=== PATIENT | male | born 1985 | race Caucasian/White ===

== ENCOUNTER 2017-08-10 16:53 | Emergency (ER) | payer BC ==
--- NOTE | 2017-08-10 17:23 | UC ---
Respiratory Complaint HPI - HPI Summary HPI Summary: 31 year old female presents with complains of cough and chest congestion. - History of Current Complaint Stated Complaint: COUGH,CHEST PAIN Time Seen by Provider: 08/10/17 17:23 Hx Obtained From: Patient Onset/Duration: Sudden Onset Severity Initially: Moderate Severity Currently: Moderate Character: Cough: Nonproductive Aggravating Factors: Exertion, Deep Breaths - Allergies/Home Medications Allergies/Adverse Reactions: Allergies Allergy/AdvReac Type Severity Reaction Status Date / Time Ibuprofen [From Motrin] AdvReac See Comment Verified 08/10/17 17:35 PMH/Surg Hx/FS Hx/Imm Hx Previously Healthy: Yes - Surgical History Surgical History: Yes Surgery Procedure, Year, and Place: DOUBLE HERNIA REPAIR - Family History Known Family History: Positive: None - Social History Alcohol Use: None Substance Use Type: None Smoking Status (MU): Former Smoker Type: Smokeless Tobacco Amount Used/How Often: 1 CAN PER DAY Length of Time of Smoking/Using Tobacco: 2 YRS CHEWING When Did the Patient Quit Smoking/Using Tobacco: QUIT SMOKING 4 YRS AGO Review of Systems Constitutional: Negative Skin: Negative Eyes: Negative ENT: Negative, Sinus Congestion, Sinus Pain/Tenderness Respiratory: Shortness Of Breath, Cough Cardiovascular: Negative Gastrointestinal: Negative Genitourinary: Negative Motor: Negative Neurovascular: Negative Musculoskeletal: Negative Neurological: Negative Psychological: Negative All Other Systems Reviewed And Are Negative: Yes Physical Exam Triage Information Reviewed: Yes Vital Signs Reviewed: Yes Eye Exam: Normal ENT: Positive: Nasal congestion, Nasal drainage, Sinus tenderness Dental Exam: Normal Neck exam: Normal Neck: Positive: 1 Respiratory: Positive: Wheezing Cardiovascular Exam: Normal Abdominal Exam: Normal Musculoskeletal Exam: Normal Neurological Exam: Normal Psychological Exam: Normal Skin Exam: Normal Respiratory Course/Dx - Differential Dx/Diagnosis Provider Diagnoses: bronchitis. bronchospasm Discharge - Discharge Plan Condition: Stable Disposition: HOME Prescriptions: Azithromyxin USMAN (NF) [Z-Usman (Zithromax) 250 mg tabs #6] 2 tab PO .TODAY, THEN 1 DAILY #6 tab Guaifenesin-Codeine [Cheratussin AC] 1 teasp PO Q8H #120 ml MDD 15 ml Methylprednisolone [Medrol Dosepak 4 MG*] 4 mg PO .SEE USMAN INSTRUCTION #21 tab Patient Education Materials: Bronchospasm (ED), Acute Cough (ED) Referrals: Herminio Banda MD [Primary Care Provider] -
[2017-08-10 17:35] VITALS: BP 132/88
[2017-08-10] MEDS ORDERED: predniSONE TAB* 20 MG PO ONE (17:39)
[2017-08-10] MEDS ORDERED: Albuterol 2.5 MG/3 ML NEB.SOL* (0.083%) INH ONE (17:39)
--- NOTE | 2017-08-10 18:19 | RAD ---
INDICATION: Cough COMPARISON: None TECHNIQUE: PA and lateral dual-energy views were obtained. FINDINGS: Bones/Soft Tissues: There are no acute bony findings. Cardiomediastinal: The cardiomediastinal silhouette is normal. Lungs: There are no infiltrates. Pleura: There are no pleural effusions. Other: None IMPRESSION: NORMAL CHEST
== END 2017-08-10 18:24 | disposition home or self-care (01) ==
LOC: UCCORT 16:53
DX: J20.9 Acute bronchitis, unspecified (principal); Z88.6 Allergy status to analgesic agent; Z87.891 Personal history of nicotine dependence; F17.220 Nicotine dependence, chewing tobacco, uncomplicated
CPT/HCPCS: 71020; 99212; G0463; J7512